=== PATIENT | female | born 1995 | race Hispanic/Latino ===

== ENCOUNTER 2018-03-31 22:25 | Emergency (ER) | payer MEDICAID, OTHER ==
[2018-03-31] MEDS ORDERED: OCTYL 2-CYANOACRYLATE 1 EACH TP ONE (22:54)
[2018-03-31] MEDS ORDERED: IBUPROFEN 600 MG TABLET ONE (22:55)
== END 2018-03-31 23:12 | disposition home or self-care (01) ==
LOC: EDH 22:25
DX: S61.215A Laceration without foreign body of left ring finger without damage to nail, initial encounter (principal); W25.XXXA Contact with sharp glass, initial encounter; Y93.89 Activity, other specified; Y92.89 Other specified places as the place of occurrence of the external cause; Y99.8 Other external cause status
CPT/HCPCS: 12001

== ENCOUNTER 2022-02-01 11:09 | Emergency (ER) | payer OTHER ==
[~2022-02-01] VITALS: Ht 160 cm; Wt 79.4 kg
[2022-02-01] MEDS ORDERED: 0.9%NACL 1000ML 1,000 ML IV ONE (11:30)
[2022-02-01] MEDS ORDERED: KETOROLAC 15MG/ML VIAL (15MG/ML) IV ONE (12:00)
[2022-02-01] MEDS ORDERED: ONDANSETRON 4MG INJ IVP ONE (12:00)
[2022-02-01 12:24] LABS: BILIRUBIN,URINE Negative (NEGATIVE); COLOR,URINE Yellow (YELLOW); GLUCOSE, URINE (UA) Negative (NEGATIVE); HCG,QUAL RESULT NEGATIVE (NEGATIVE); KETONES,URINE Trace mg/dL (NEGATIVE); LEUKOCYTE ESTERASE ,URINE Moderate (NEGATIVE); NITRATE,URINE Negative (NEGATIVE); OCCULT BLOOD,URINE Trace (NEGATIVE); PROTEIN,URINE Trace mg/dL (NEGATIVE); UROBILINOGEN,URINE 0.2 mg/dL (0.2-1.0)
[2022-02-01 12:32] LABS: APPEARANCE,URINE CLOUDY (CLEAR)
[2022-02-01 12:39] LABS: BASOPHILS % (AUTO) 0.4 % (0.0-5.0); EOSINOPHILS % (AUTO) 0.6 % (0.0-8.0); LYMPHOCYTES % (AUTO) 23.8 % (21.0-51.0); MEAN CORPUSCULAR HEMOGLOBIN 27.5 pg (27.0-33.0); MEAN CORPUSCULAR HGB CONC 32.4 g/dL (32.0-36.0); MEAN CORPUSCULAR VOLUME 84.7 fL (79-99); PLATELET COUNT (AUTO) 240 K/uL (130-400); RED BLOOD CELL COUNT(AUTO) 5.31 MIL/uL (4.00-5.50); RED CELL DISTRIBUTION WIDTH 12.7 % (11.0-15.5); WHITE BLOOD COUNT (AUTO) 8.2 K/uL (4.8-10.8)
[2022-02-01 12:43] LABS: BACTERIA,URINE Few /HPF (None Seen); MUCUS,URINE Rare LPF (None Seen); RBC,URINE 0-1 /HPF (0-1); SQUAMOUS EPITHELIAL CELL,UR Moderate /HPF (0-2)
[2022-02-01 13:00] LABS: ALANINE AMINOTRANSFERASE 18 U/L (12-78); ALBUMIN 3.7 g/dL (3.5-5.0); ASPARTATE AMINOTRANSFERASE 21 U/L (10-37); CARBON DIOXIDE 26 mmol/L (21-32); CHLORIDE 105 mmol/L (101-111); CREATININE 0.7 mg/dL (0.5-1.5); GLOMERULAR FILTR. RATE CALC 108 mL/min (>60); GLUCOSE,RANDOM 85 mg/dL (70-105); POTASSIUM 3.6 mmol/L (3.5-5.1); SODIUM SERUM 141 mmol/L (136-145); TOTAL PROTEIN, SERUM 7.8 g/dL (6.0-8.3); UREA NITROGEN, BLOOD 9 mg/dL (7-18)
[2022-02-01 13:37] VITALS: BP 98/41
[2022-02-01] MEDS ORDERED: ONDA4TAB10 PO (14:41)
[2022-02-01] MEDS ORDERED: BACI1CAP6 PO (14:41)
[2022-02-01] MEDS ORDERED: DICY20TA2 PO (14:41)
== END 2022-02-01 15:00 | disposition home or self-care (01) ==
LOC: EDH 11:09
DX: K52.9 Noninfective gastroenteritis and colitis, unspecified (principal)
CPT/HCPCS: 99284; 74176; 96374; 76705; 96361; 96375; 80053; 85025; 87088; 81001; 81025; 36415; J7030; J2405; J1885

== ENCOUNTER 2022-08-09 07:58 | Emergency (ER) | payer BC, OTHER ==
[~2022-08-09] VITALS: Ht 160 cm; Wt 68.0 kg
[~2022-08-09 07:58] MED LIST: BACI1CAP6 PO; DICY20TA2 PO; ONDA4TAB10 PO
[2022-08-09 08:28] LABS: APPEARANCE,URINE TURBID (CLEAR); BILIRUBIN,URINE NEGATIVE (NEGATIVE); COLOR,URINE LIGHT-ORANGE (YELLOW); GLUCOSE, URINE (UA) NEGATIVE (NEGATIVE); KETONES,URINE NEGATIVE (NEGATIVE); LEUKOCYTE ESTERASE ,URINE 500 Leu/uL (NEGATIVE); NITRATE,URINE NEGATIVE (NEGATIVE); OCCULT BLOOD,URINE LARGE (NEGATIVE); PH,URINE 5.5 (5.0-8.0); PROTEIN,URINE 30 mg/dL (NEGATIVE); UROBILINOGEN,URINE 0.2 mg/dL (0.2-1.0)
[2022-08-09 08:33] LABS: HCG,QUALITATIVE URINE NEGATIVE (NEGATIVE)
[2022-08-09 08:36] LABS: MUCUS,URINE RARE LPF (None Seen); RBC,URINE TNTC /HPF (0-1); WBC,URINE TNTC /HPF (0-1)
[2022-08-09] MEDS ORDERED: SULF1TAB42 PO (09:24)
[2022-08-09] MEDS ORDERED: PHEN-847 PO (09:24)
[2022-08-09] MEDS ORDERED: PHENAZOPYRIDINE HCL 200 MG TABLET PO ONE (09:30)
[2022-08-09] MEDS ORDERED: CEFTRIAXONE 1G VIAL IM ONE (09:30)
[2022-08-09 10:02] VITALS: BP 120/66
== END 2022-08-09 10:00 | disposition home or self-care (01) ==
LOC: EDH 07:58
DX: N39.0 Urinary tract infection, site not specified (principal); Z79.2 Long term (current) use of antibiotics; Z79.899 Other long term (current) drug therapy
CPT/HCPCS: 99283; 87077; 87088; 87186; 81001; 81025; 96372; J0696